=== PATIENT | male | born 1955 | race Caucasian/White ===

== ENCOUNTER 2017-10-19 12:29 | Outpatient (CLI) | payer MEDICAID ==
[~2017-10-19] VITALS: Ht 160 cm; Wt 77.1 kg
[2017-10-19 12:40] VITALS: BP 120/89
[2017-10-19] MEDS ORDERED: HYDR-3820 PO (12:59)
[2017-10-19] MEDS ORDERED: ALPR1TAB7 PO (12:59)
[2017-10-19] MEDS ORDERED: OMG1KC PO (12:59)
[2017-10-19] MEDS ORDERED: GABA-486 PO (12:59)
[2017-10-19] MEDS ORDERED: DULO20CA PO (12:59)
[2017-10-19] MEDS ORDERED: CINN500C2 PO (12:59)
[2017-10-19 13:20] LABS: BASOPHILS % (AUTO) 1 % (0-10); EOSINOPHILS # (AUTO) 0.2 10^3/uL (0.0-0.3); EOSINOPHILS % (AUTO) 2 % (0-10); HEMATOCRIT 40 % (40-54); LYMPHOCYTES % (AUTO) 26 % (12-44); MEAN CORPUSCULAR HEMOGLOBIN 32 PG (25-34); MEAN CORPUSCULAR HGB CONC 35 G/DL (32-36); MEAN CORPUSCULAR VOLUME 90 FL (80-99); MONOCYTES # (AUTO) 0.6 X 10^3 (0.0-1.0); MONOCYTES % (AUTO) 8 % (0-12); NEUTROPHILS % (AUTO) 64 % (42-75); PLATELET COUNT 294 10^3/uL (130-400); RED BLOOD COUNT 4.44 10^6/uL (4.35-5.85); RED CELL DISTRIBUTION WIDTH 12.5 % (10.0-14.5); WHITE BLOOD COUNT 7.8 10^3/uL (4.3-11.0)
[2017-10-19] MEDS ORDERED: LISI10TA2 PO (14:37)
[2017-10-19] MEDS ORDERED: DULO60CA58 PO (14:37)
[2017-10-19] MEDS ORDERED: GABA-488 PO (14:37)
[2017-10-19] MEDS ORDERED: DEXL60CA PO (14:37)
== END 2017-10-19 13:10 | disposition home or self-care (01) ==
LOC: PREOP 12:29
PROVIDERS: ATTEND Orthopaedic Surgery
DX: M48.02 Spinal stenosis, cervical region (principal); Z11.2 Encounter for screening for other bacterial diseases; Z01.812 Encounter for preprocedural laboratory examination
CPT/HCPCS: 36415; 85025; 87081

== ENCOUNTER 2017-10-29 06:11 | Inpatient (IN) | payer MEDICAID ==
[~2017-10-29] VITALS: Ht 160 cm; Wt 77.1 kg
[~2017-10-29 06:11] MED LIST: ALPR1TAB7 PO; CINN500C2 PO; DEXL60CA PO; DULO20CA PO; DULO60CA58 PO; GABA-486 PO; GABA-488 PO; HYDR-3820 PO; LISI10TA2 PO; OMG1KC PO
[2017-10-29 06:25] VITALS: BP 121/95
[2017-10-29] MEDS: LACTATED RINGERS 1,000 ML IV PRN ×2 (06:40→08:13)
[2017-10-29] MEDS ORDERED: ceFAZolin 2 GM IV Premixed 50 ML IV ONE (06:45)
[2017-10-29] MEDS ORDERED: FAMOTIDINE 20MG/2ML IV (PEPCID) IV ONE (07:00)
[2017-10-29] MEDS ORDERED: ROCURONIUM 10 MG/ML 5 ML SYRINGE IV ONE (07:02)
[2017-10-29] MEDS ORDERED: SUCCINYLCHOLINE INJ 100 MG/5 ML SYR ONE (07:02)
[2017-10-29] MEDS ORDERED: LIDOCAINE PF 2% 5 ML (XYLOCAINE) VIAL ONE (07:02)
[2017-10-29] MEDS ORDERED: proPOfol 200 MG/20 ML (DIPRIVAN) VIAL IV ONE ×2 (07:02→07:42)
[2017-10-29] MEDS ORDERED: ONDANSETRON 4 MG/2 ML (SDV) Z0FRAN ONE (07:02)
[2017-10-29] MEDS ORDERED: fentaNYL INJECTION 100 MCG/2 ML AMP ONE (07:02)
[2017-10-29] MEDS ORDERED: DEXAMETHASONE 10 MG/ML (DECADRON) 1 ML VIAL ONE (07:03)
[2017-10-29] MEDS ORDERED: DEXMEDETOMIDINE 200 MCG/2 ML (PRECEDEX) VIAL IV ONE (07:03)
[2017-10-29] MEDS ORDERED: MIDAZOLAM 2 MG/2 ML (VERSED) VIAL ONE (07:03)
[2017-10-29] MEDS ORDERED: BACITRACIN 100,000 UNIT/NS 1000 ML POUR BOTTLE IR ONE ×2 (07:30)
[2017-10-29] MEDS ORDERED: SEVOFLURANE (ULTANE) 15 ML INHAL SOLN ONE ×2 (08:36→08:43)
[2017-10-29] MEDS ORDERED: GLYCOPYRROLATE 0.2 MG/ML (ROBINUL) 2 ML VIAL ONE (08:43)
[2017-10-29] MEDS ORDERED: NEOSTIGMINE 1 MG/ML 5 ML SYRINGE ONE (08:43)
[2017-10-29] MEDS ORDERED: ATROPINE 0.4 MG/ML 20 ML VIAL ONE (08:58)
[2017-10-29] MEDS ORDERED: ONDANSETRON 4 MG/2 ML (SDV) Z0FRAN IVP PRN (09:15)
[2017-10-29] MEDS ORDERED: ALPRAZolam 1 MG (XANAX) TAB PO PRN (09:15)
[2017-10-29] MEDS ORDERED: DOCUSATE SODIUM 100 MG (COLACE) CAP PO PRN (09:15)
[2017-10-29] MEDS ORDERED: BISACODYL 10 MG SUPP (DULCOLAX) PR PRN (09:15)
[2017-10-29] MEDS ORDERED: ONDANSETRON 4 MG/2 ML (SDV) Z0FRAN IV PRN (09:15)
[2017-10-29] MEDS ORDERED: MEPERIDINE (DEMEROL) INJ 50 MG/ML IVP PRN (09:15)
[2017-10-29] MEDS ORDERED: ACETAMINOPHEN 325 MG TABLET PO PRN (09:15)
[2017-10-29] MEDS ORDERED: morphine INJ 10 MG/ML 1ML (SYR OR VIAL) IM PRN (09:15)
[2017-10-29] MEDS ORDERED: HYDROmorphone 1 MG/ML (DILAUDID) 1 ML SYRINGE IV PRN (09:15)
[2017-10-29] MEDS ORDERED: morphine INJ 10 MG/ML 1ML (SYR OR VIAL) IVP PRN (09:15)
--- NOTE | 2017-10-29 09:17 | Diagnostic Imaging Report ---
INDICATION: Cervical spine fusion. FINDINGS: Fluoroscopy was provided in the OR during cervical spine fusion. 8 seconds of fluoroscopy was utilized. Images demonstrate an anterior plate and screws transfixing the C4 through C6 levels. IMPRESSION: Fluoroscopy for ACDF. Dictated by: Dictated on workstation # [id number]
[2017-10-29 10:15] VITALS: BP 114/67
[2017-10-29 12:00] VITALS: BP 126/72
[2017-10-29] MEDS: oxyCODONE/APAP 5/325MG (PERCOCET 5) TABLET PO PRN (12:55)
[2017-10-29] MEDS: GABAPENTIN 300 MG (NEURONTIN) CAP PO SCH ×2 (12:55→20:19)
--- NOTE | 2017-10-29 13:18 | OPERATIVE REPORT ---
DATE OF SERVICE: 10/29/2017 SURGEON: Donna Carlson DO WATERWORKS CHIEF ENGINEER: STEPHEN Lopez. This is a medically necessary procedure. Assistance is necessary for retraction of vital neurovascular structures. Without an dental assistant medical assistant, the procedure would not be possible. PREOPERATIVE DIAGNOSES: 1. Cervical radiculopathy. 2. Cervical stenosis (foraminal, bony, central). POSTOPERATIVE DIAGNOSES: 1. Cervical radiculopathy. 2. Cervical stenosis (foraminal, bony, central). PROCEDURE PERFORMED: 1. C4-5, C5-6 anterior cervical diskectomy and fusion. 2. Application of titanium interbody spacers C4-5, C5-6. 3. Application of anterior instrumentation C4-5, C5-6. 4. Use of human allograft for spine. 5. Use of local bone autograft. COMPLICATIONS: None. SPECIMENS SENT: None. DRAIN PLACED: With Hemovac. ESTIMATED BLOOD LOSS: Minimal. ANESTHESIA: General endotracheal tube anesthesia. HISTORY OF PRESENT ILLNESS: The patient is a very pleasant 62-year-old gentleman who presented to me with severe radiating right upper extremity pain. MRI demonstrated spinal stenosis. He failed conservative measures and did wish to proceed with operative intervention. He understood the risks and benefits. DESCRIPTION OF PROCEDURE: The patient was identified by name on wrist band in the preoperative holding area. His operative site was signed. Consent was signed. SCDs were placed. Neuromonitor was hooked up and antibiotics were started. He was taken to the operating room theater and placed under general endotracheal tube anesthesia and transferred to the operating table in the supine position. He was prepped and draped in usual sterile fashion. Formal timeout was conducted. Lateral x-ray was then used to srini out the level of my incision. I made an oblique incision over the medial aspect of the left sternocleidomastoid. I proceeded with standard anterior cervical approach, identified and verified my level under lateral x-ray. I then placed [place] pin distraction across the C4-5 disk space and I performed a complete diskectomy. I took down the posterior longitudinal ligament and I did bilateral foraminotomies. I then sized and chose the appropriate titanium interbody cage packed with human allograft and local bone autograft and anesthesia in the midline position. I then repeated this process at C5-6. I then chose the appropriate size plate and placed it directly in the midline. I placed screws into the body of C4, C5 and C6. Final x-rays demonstrated good positioning of all the hardware. I maintained hemostasis, irrigated the wound, placed the drain, closed the wound in the usual layered fashion utilizing 3-0 Vicryl followed by running 3-0 subcuticular stitch. I applied dressings, took the patient in the supine position to the PACU where he awoke without incident. He tolerated the procedure well. The plan at this time is to admit the patient for IV antibiotics, IV pain control and postoperative monitoring. He will be out of bed with a brace on. We will discontinue his drain per my protocol. Please note instrumentation utilized was NuV[employer] for everything. Neuro monitoring was stable throughout. Job ID: [id number] DocumentID: [id number] Dictated Date: 10/29/2017 08:55:23 Systems Architect Date: 10/29/2017 13:17:28 Dictated By: DONNA CARLSON DO
[2017-10-29] MEDS: ceFAZolin INJECTION 1,000 MG in NS (IVPB) 50 ML IV SCH ×2 (13:25→21:02)
[2017-10-29] MEDS: CYCLOBENZAPRINE 10 MG (FLEXERIL) TAB PO PRN (13:30)
[2017-10-29] MEDS: HYDROcodone/APAP 5 MG/325 MG (LORTAB) TAB PO PRN ×2 (15:01→20:20)
[2017-10-29] MEDS ORDERED: CHLORASEPTIC SPRAY 177 ML LIQUID MC PRN (15:15)
[2017-10-29 15:35] VITALS: BP 120/76
[2017-10-29 19:50] VITALS: BP 126/64
[2017-10-29] MEDS: FAMOTIDINE 20 MG (PEPCID) TABLET PO SCH (20:19)
[2017-10-30 00:38] VITALS: BP 127/75
[2017-10-30 04:22] VITALS: BP 133/77
[2017-10-30] MEDS: ceFAZolin INJECTION 1,000 MG in NS (IVPB) 50 ML IV SCH (05:02)
[2017-10-30] MEDS: HYDROcodone/APAP 5 MG/325 MG (LORTAB) TAB PO PRN (05:03)
[2017-10-30] MEDS ORDERED: PANTOPRAZOLE 40 MG (PROTONIX) TAB PO SCH (07:00)
[2017-10-30] MEDS ORDERED: MULTIVIT W/MINERALS TAB (THERAGRAN M) PO SCH (07:00)
--- NOTE | 2017-10-30 07:00 | Anesthesia-General Post-Op ---
General Patient Condition Mental Status/LOC: Same as Preop Cardiovascular: Satisfactory Nausea/Vomiting: Absent Respiratory: Satisfactory Pain: Controlled Complications: Absent Post Op Complications Complications None Follow Up Care/Instructions Patient Instructions None needed. Anesthesia/Patient Condition Patient Condition Patient is doing well, no complaints, stable vital signs, no apparent adverse anesthesia problems. No complications reported per nursing. CANDIS LICONA CRNA Oct 30, 2017 07:00
[2017-10-30] MEDS ORDERED: OXYC-471 PO (07:05)
[2017-10-30] MEDS ORDERED: CYCL10TA9 PO (07:05)
[2017-10-30] MEDS: CYCLOBENZAPRINE 10 MG (FLEXERIL) TAB PO PRN (07:57)
[2017-10-30] MEDS: oxyCODONE/APAP 5/325MG (PERCOCET 5) TABLET PO PRN (07:57)
[2017-10-30 08:00] VITALS: BP 176/91
[2017-10-30] MEDS: GABAPENTIN 300 MG (NEURONTIN) CAP PO SCH ×2 (08:00→13:07)
[2017-10-30] MEDS: FAMOTIDINE 20 MG (PEPCID) TABLET PO SCH (08:07)
--- NOTE | 2017-10-30 08:16 | Diagnostic Imaging Report ---
INDICATION: Postop C-spine FINDINGS: Anterior Interbody cervical fusion C4, C5, and C6 is performed. Hardware in good position. Bony alignment anatomic. Surgical drain overlies the site. No unexpected finding. IMPRESSION: Good appearance of the postop multilevel ACDF Dictated by: Dictated on workstation # [id number]
[2017-10-30] MEDS ORDERED: MILK OF MAGNESIA 400 MG/5 ML 30 ML UDC PO SCH (09:00)
[2017-10-30] MEDS ORDERED: DULoxetine 30 MG (CYMBALTA) CAP PO SCH (09:00)
[2017-10-30] MEDS ORDERED: lisINopril 10 MG (PRINIVIL) TABLET PO SCH (09:00)
--- NOTE | 2017-10-30 10:35 | Physical Therapy Progress Note ---
Therapy Progress Note Patient is currently up independently in room and hallway without difficulty. Talked with patient and family on any concerns and they had none. No skilled PT required at this time. Thank you for this referral. 1 visit JEFRY SIMS PT Oct 30, 2017 10:35
--- NOTE | 2017-10-30 12:50 | Discharge Inst-Simple/Standard ---
Discharge Inst-Standard Patient Instructions/Follow Up Plan of Care/Instructions/FU: continue c-collar dont bend lift twist push or pull keep incision clean and dry follow up 2 weeks for post op visit Activity as Tolerated: No Discharge Diet: Regular Diet Return to The Hospital For: fever chills night sweat shortness of breath chest pain VENKAT ZAYAS Oct 30, 2017 12:50
--- NOTE | 2017-10-30 13:26 | Occ Therapy Progress Note ---
Therapy Progress Note OT order received, chart reviewed. Went in to evaluate pt. Pt. is sitting up in chair, with clothing on. Pt. has already dressed self, and demonstrates ability to bring feet up to show this therapist that he can don socks. Pt. states that he has been to the bathroom, and is already seeing a significant improvement in bilateral hands as far as strength and sensation. OT asked him if he had any concerns and pt. states that he does not. Pt. to leave today per him and family member. Pt. is educated again on spinal precautions but states that he knows them well. 1, visit 0930 Discharge pt. KATHY SOTELO OT Oct 30, 2017 13:26
[2017-10-30 13:32] VITALS: BP 176/91
== END 2017-10-30 13:25 | disposition home or self-care (01) | DRG 473 ==
LOC: 4TH 06:11 → SURG 06:12 → 4TH 10:25
PROVIDERS: ADMIT Orthopaedic Surgery; ATTEND Orthopaedic Surgery
PROC: 0RG20A0 Fusion of 2 or more Cervical Vertebral Joints with Interbody Fusion Device, Anterior Approach, Anterior Column, Open Approach (ICD-10-PCS; principal; 2017-10-29 07:27)
DX: M48.02 Spinal stenosis, cervical region (principal); M54.12 Radiculopathy, cervical region; I10 Essential (primary) hypertension; F41.9 Anxiety disorder, unspecified; F32.9 Major depressive disorder, single episode, unspecified
CPT/HCPCS: 72040; 94664

== ENCOUNTER 2018-03-14 15:03 | Emergency (ER) | payer OTHER, MEDICAID ==
[~2018-03-14] VITALS: Ht 160 cm; Wt 78.9 kg
[~2018-03-14 15:03] MED LIST changes: +CYCL10TA9 PO; +OXYC-471 PO
[2018-03-14] MEDS ORDERED: morphine INJ 10 MG/ML 1ML (SYR OR VIAL) IVP ONE (15:15)
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
[2018-03-14] MEDS ORDERED: LOSA50TA7 (15:48)
[2018-03-14 15:50] LABS: BASOPHILS % (AUTO) 0 % (0-10); EOSINOPHILS # (AUTO) 0.1 10^3/uL (0.0-0.3); EOSINOPHILS % (AUTO) 1 % (0-10); HEMATOCRIT 39 % (40-54); HEMOGLOBIN 13.5 G/DL (13.3-17.7); LYMPHOCYTES # (AUTO) 1.7 X 10^3 (1.0-4.0); LYMPHOCYTES % (AUTO) 22 % (12-44); MEAN CORPUSCULAR HEMOGLOBIN 31 PG (25-34); MEAN CORPUSCULAR HGB CONC 35 G/DL (32-36); MEAN CORPUSCULAR VOLUME 89 FL (80-99); MEAN PLATELET VOLUME 9.2 FL (7.4-10.4); MONOCYTES # (AUTO) 0.9 X 10^3 (0.0-1.0); MONOCYTES % (AUTO) 12 % (0-12); NEUTROPHILS % (AUTO) 65 % (42-75); PLATELET COUNT 277 10^3/uL (130-400); RED BLOOD COUNT 4.38 10^6/uL (4.35-5.85); WHITE BLOOD COUNT 7.7 10^3/uL (4.3-11.0)
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
[2018-03-14 16:05] LABS: ALANINE AMINOTRANSFERASE 48 U/L (0-55); ALBUMIN 4.1 GM/DL (3.2-4.5); ALKALINE PHOSPHATASE 85 U/L (40-136); BILIRUBIN,TOTAL 0.4 MG/DL (0.1-1.0); BUN/CREATININE RATIO 14; CARBON DIOXIDE 23 MMOL/L (21-32); CHLORIDE 108 MMOL/L (98-107); GFR ESTIMATED > 60; GLUCOSE 93 MG/DL (70-105); POTASSIUM 4.4 MMOL/L (3.6-5.0); SODIUM 141 MMOL/L (135-145); TOTAL PROTEIN 6.7 GM/DL (6.4-8.2)
[2018-03-14] MEDS ORDERED: KETOROLAC 30 MG/ML VIAL IVP ONE (16:15)
[2018-03-14] MEDS ORDERED: ORPHENADRINE 60 MG/2 ML (NORFLEX) AMP IV ONE (16:15)
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
[2018-03-14 17:43] VITALS: BP 125/82
== END 2018-03-14 17:43 | disposition home or self-care (01) ==
LOC: EDUNIT# 15:03 → ER 15:04
DX: M54.2 Cervicalgia (principal); R07.9 Chest pain, unspecified; R10.9 Unspecified abdominal pain; R51 Headache; F41.9 Anxiety disorder, unspecified; R40.2142 Coma scale, eyes open, spontaneous, at arrival to emergency department; R40.2252 Coma scale, best verbal response, oriented, at arrival to emergency department; R40.2362 Coma scale, best motor response, obeys commands, at arrival to emergency department; Z82.49 Family history of ischemic heart disease and other diseases of the circulatory system; Z88.8 Allergy status to other drugs, medicaments and biological substances; Z87.442 Personal history of urinary calculi; V52.5XXA Driver of pick-up truck or van injured in collision with two- or three-wheeled motor vehicle in traffic accident, initial encounter
CPT/HCPCS: 36415; 70450; 71260; 72125; 72131; 73030; 74177; 80053; 85025; 93005

== ENCOUNTER → 2018-11-27 | Outpatient (CLI) | payer MEDICAID, OTHER ==
[~2018-11-27] MED LIST changes: -DULO60CA58 PO; +DULO60CA59 PO; +GADOBUTROL 10 MMOL/10 ML (GADAVIST) VIAL IV ONE; +LOSA50TA63
--- NOTE | 2018-11-27 17:26 | Diagnostic Imaging Report ---
PROCEDURE: MR imaging of the cervical spine with and without contrast. TECHNIQUE: Multiplanar and multisequence MRI of the cervical spine was performed with and without contrast. INDICATION: Neck pain. Left-sided arm pain. Previous surgery. COMPARISON: CT dated 06/04/2018. FINDINGS: Patient is status post previous anterior fusion of C4 through C6. Evaluation of the surgical hardware is suboptimal secondary to MR modality and metallic susceptibility artifact. Static alignment of C4 through C6, however, is maintained. Note is made, however, of slight grade 1 retrolisthesis at C3-C4. There is no evidence of jumped facets. The C4 through C6 vertebral bodies are also partially obscured secondary to the underlying surgical hardware. Marrow signal of the cervical spine, however, is unremarkable. There is no acute fracture. Postcontrast images show no abnormal areas of osseous enhancement. There is mild multilevel intervertebral disc height loss at the C3-C4 and C6-C7 levels as well as posterior disc bulges. This does result in underlying spinal canal narrowing. Cervical cord, however, is normal in size and contour. There is no evidence of cord edema. Postcontrast images show no abnormal areas of cord enhancement. Included portions of the posterior fossa are unremarkable as well. Pre- and para-vertebral soft tissue structures are within normal limits. Axial images demonstrate the following: C2-C3: There is mild bilateral uncovertebral hypertrophy. There is, however, no significant disc bulge, focal protrusion, nor spinal canal or neural foraminal stenosis. C3-C4: There is bilateral uncovertebral hypertrophy with broad-based posterior disc bulge. As a result, there is fjbd-rd-axcvlgrp narrowing of the spinal canal and mild narrowing of the bilateral neural foramina. C4-C5: There is mild bilateral uncovertebral hypertrophy. There is no large disc bulge. Intervertebral disc spacers are noted. There may be mild narrowing of the bilateral neural foramina. Spinal canal is minimally narrowed as well. C5-C6: There is bilateral uncovertebral hypertrophy. There is no large disc bulge. Note is made of intervertebral disc spacer in appropriate position. There is perhaps minimal narrowing of the spinal canal and left neural foramen. Moderate narrowing of the right neural foramen is also noted. C6-C7: There is bilateral uncovertebral hypertrophy, right greater than left. There is also mild broad-based posterior disc bulge. As a result, there is moderate asymmetric narrowing of the right neural foramen. There is also mild narrowing of the left neural foramen and spinal canal. C7-T1: There is no large disc bulge or focal protrusion. There is no significant spinal canal or neural foraminal stenosis. IMPRESSION: 1. Postsurgical changes of previous anterior fusion of C4 through C6. Again, evaluation of the surgical hardware is suboptimal given MR modality and metallic susceptibility artifact, but static alignment at these levels is maintained. 2. Mild retrolisthesis at C3-C4 with degenerative changes, greatest at C3-C4 and C6-C7. 3. No acute fracture or dislocation. No abnormal enhancement. Dictated by: Dictated on workstation # [id number]
== END ==
LOC: RAD 16:09
PROVIDERS: ATTEND Family Medicine
DX: M43.12 Spondylolisthesis, cervical region (principal); M47.812 Spondylosis without myelopathy or radiculopathy, cervical region; Z98.890 Other specified postprocedural states
CPT/HCPCS: 72156

== ENCOUNTER 2020-05-21 16:20 | Emergency (ER) | payer MEDICAID ==
[~2020-05-21] VITALS: Ht 162.6 cm; Wt 81.6 kg
[~2020-05-21 16:20] MED LIST changes: +ACHYD1T PO; -GADOBUTROL 10 MMOL/10 ML (GADAVIST) VIAL IV ONE; -HYDR-3820 PO
--- NOTE | 2020-05-21 16:31 | ED General ---
General Chief Complaint: Exposure Stated Complaint: CONGESTION,EXPOSED TO BLACK MOLD History of Present Illness Date Seen by Provider: May 21, 2020 Time Seen by Provider: 16:30 Initial Comments 64-year-old male presents with congestion, goopy eyes when awakes in the morning, itchy throat, frequent throat clearing. Patient is concerned is possibly from mold where they were exposed to the house but they report they have clean the house from it. Symptoms started 10 to 14 days ago. Patient had a Covid test 7 days ago that was negative. Patient denies any cough, shortness of breath, fevers, chills. Occasional upset stomach. Allergies and Home Medications Allergies Coded Allergies: Wpckhsy-Ecl-Atg Reductase Inhibitor (Verified Allergy, Unknown, 10/19/17) albuterol (Verified Allergy, Unknown, 10/19/17) fentanyl (Verified Allergy, Unknown, 03/14/18) Home Medications Alprazolam 1 Mg Tablet, 1 MG PO TID PRN for ANXIETY, (Reported) Cinnamon Bark 500 Mg Capsule, 500 MG PO BID, (Reported) Cyclobenzaprine HCl 10 Mg Tablet, 10 MG PO TID PRN for SPASMS Prescribed by: VENKAT ZAYAS on 10/30/17704 Dexlansoprazole 60 Mg Cap.bp, 60 MG PO DAILY, (Reported) Duloxetine HCl 60 Mg Capsule.dr, 60 MG PO DAILY, (Reported) Gabapentin 300 Mg Capsule, 300 MG PO TID, (Reported) Lisinopril 10 Mg Tablet, 10 MG PO DAILY, (Reported) [place] 3 Polyunsat Fatty Acids 1,000 Mg Cap, 1,000 MG PO DAILY, (Reported) Oxycodone HCl/Acetaminophen 1 Each Tablet, 1-2 TAB PO Q4H PRN for PAIN-SEVERE 1ST LINE Prescribed by: VENKAT ZAYAS on 10/30/17 07 Patient Home Medication List Home Medication List Reviewed: Yes Review of Systems Review of Systems Constitutional: No chills, No fever, No malaise EENTM: see HPI Respiratory: No cough, No short of breath Cardiovascular: No chest pain, No palpitations Gastrointestinal: see HPI Musculoskeletal: no symptoms reported Skin: No rash Psychiatric/Neurological: No Symptoms Reported Hematologic/Lymphatic: No Symptoms Reported Past Mzwygmh-Nooivq-Loawkj Hx Past Med/Social Hx: Reviewed Nursing Past Med/Soc Hx Patient Social History Recent Hopitalizations: No Immunizations Up To Date Tetanus Booster (TDap): Unknown PED Vaccines UTD: Yes Seasonal Allergies Seasonal Allergies: Yes Past Medical History Surgeries: Yes (several ESWL's) Respiratory: No Cardiac: No Neurological: Yes Genitourinary: Yes Kidney Stones Gastrointestinal: No Musculoskeletal: Yes (stenosis) Arthritis, Chronic Back Pain Endocrine: No HEENT: No Cancer: No Psychosocial: Yes Anxiety Integumentary: Yes (a few bug bites on arms) Blood Disorders: No Adverse Reaction/Blood Tranf: No Family Medical History Arthritis 19 FATHER Cardiovascular disease 19 MOTHER Diabetes mellitus 19 MOTHER Hypertension 19 MOTHER Myocardial infarction 19 MOTHER Respiratory disorder 19 FATHER (lung ca) Physical Exam Vital Signs Capillary Refill : Height, Weight, BMI Height: 5'3.00" Weight: 174lbs. 0.0oz. 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 I will start patient on Flonase and Zyrtec. If patient develops shortness of breath, fever, chills or other symptoms consistent with infection they should present to primary care provider. If symptoms or not improving within 10 days they should follow-up with her primary care provider for recheck. Departure Impression Primary Impression: Allergic rhinitis caused by mold Disposition: 01 HOME, SELF-CARE Condition: Stable Departure-Patient Inst. Referrals: SELF,ANUP MORELAND (PCP) Primary Care Physician [facility]JOHN (Family) Primary Care Physician Patient Instructions: Allergy to Mold, Controlling Dust and Allergens in Your Home Add. Discharge Instructions: Zyrtec daily as directed on package or similar allergy medicine such as Nora, Claritin Flonase as directed on package daily All discharge instructions reviewed with patient and/or family. Voiced understanding. STEPHEN RHODES DO May 21, 2020 16:30
[2020-05-21 16:45] VITALS: BP 126/85
== END 2020-05-21 17:10 | disposition home or self-care (01) ==
LOC: EDUNIT# 16:20 → ER FS 16:22
DX: J30.89 Other allergic rhinitis (principal); F41.9 Anxiety disorder, unspecified; G89.29 Other chronic pain; M54.9 Dorsalgia, unspecified; Z88.8 Allergy status to other drugs, medicaments and biological substances; Z82.49 Family history of ischemic heart disease and other diseases of the circulatory system; Z82.61 Family history of arthritis; Z83.3 Family history of diabetes mellitus; Z79.891 Long term (current) use of opiate analgesic
CPT/HCPCS: 99282

== ENCOUNTER 2021-02-08 10:27 | Emergency (ER) | payer MEDICAID ==
[~2021-02-08] VITALS: Ht 160 cm; Wt 77.0 kg
[~2021-02-08 10:27] MED LIST changes: -LISI10TA2 PO; +LISI10TA25 PO; -OXYC-471 PO; +OXYC1TAB11 PO
--- OUTSIDE RECORDS SUMMARY | 2021-02-08 10:32 | XMS REPORT | Clinical Summary ---
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 If you d o not see the information that you expected, contact Release of Information in [facility] Information Management department at [phone] for further assistan ce in locating additional records.[facility] Allergies Not on File Medications Not on file Active Problems Not on file Social History Date Tobacco Use Types Packs/Day Years Used Never Assessed Sex Assigned at Date Recorded Not on file Last Filed Vital Signs Not on file Plan of Treatment Health Maintenance Due Date Last Done Comments HIV SCREENING 08/22/1971 DTAP/TDAP VACCINES (1 - 1974 Tdap) HEPATITIS C SCREENING 1974 PHYSICAL (COMPREHENSIVE) 1974 EXAM COLORECTAL CANCER 2006 SCREENING SHINGLES RECOMBINANT 2006 VACCINE (1 of 2) INFLUENZA VACCINE 11/14/2020 Results Not on filefrom Last 3 Months 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
[2021-02-08] MEDS ORDERED: LORazepam 0.5 MG (ATIVAN) TABLET PO STA (10:41)
[2021-02-08] MEDS ORDERED: cloNIDine 0.2 MG (CATAPRES) TAB PO ONE (10:45)
[2021-02-08 10:47] LABS: HEMATOCRIT 43 % (40-54); HEMOGLOBIN 14.8 g/dL (13.3-17.7); MEAN CORPUSCULAR HEMOGLOBIN 32 pg (25-34); MEAN CORPUSCULAR HGB CONC 35 g/dL (32-36); MEAN CORPUSCULAR VOLUME 91 fL (80-99); MEAN PLATELET VOLUME 8.9 fL (9.0-12.2); PLATELET COUNT 262 10^3/uL (130-400); WHITE BLOOD COUNT 6.2 10^3/uL (4.3-11.0)
[2021-02-08 10:48] LABS: BASOPHILS # (AUTO) 0.1 10^3/uL (0.0-0.1); BASOPHILS % (AUTO) 1 % (0-10); EOSINOPHILS # (AUTO) 0.1 10^3/uL (0.0-0.3); EOSINOPHILS % (AUTO) 2 % (0-10); LYMPHOCYTES # (AUTO) 1.9 X 10^3 (1.0-4.0); LYMPHOCYTES % (AUTO) 30 % (12-44); MONOCYTES # (AUTO) 0.5 X 10^3 (0.0-1.0); MONOCYTES % (AUTO) 8 % (0-12); NEUTROPHILS # (AUTO) 3.7 X 10^3 (1.8-7.8); NEUTROPHILS % (AUTO) 59 % (42-75)
--- NOTE | 2021-02-08 10:58 | Diagnostic Imaging Report ---
PATIENT HISTORY: Chest pain. TECHNIQUE: Single frontal view of the chest. COMPARISON: 06/02/2008 FINDINGS: The lung volumes are normal. No focal consolidation is seen. No large pleural effusion or pneumothorax is seen. The cardiomediastinal silhouette is normal in size and contour. No acute osseous abnormality is seen. IMPRESSION: No acute pulmonary abnormality seen. Dictated by: Dictated on workstation # [id number]
[2021-02-08 11:11] LABS: BUN/CREATININE RATIO 14; CARBON DIOXIDE 28 MMOL/L (21-32); CHLORIDE 109 MMOL/L (98-107); CREATININE SERUM 1.26 MG/DL (0.60-1.30); GFR ESTIMATED 58; POTASSIUM 4.9 MMOL/L (3.6-5.0); SODIUM 147 MMOL/L (135-145)
[2021-02-08 11:12] LABS: ALANINE AMINOTRANSFERASE 15 U/L (0-55); ALBUMIN 4.8 GM/DL (3.2-4.5); ALKALINE PHOSPHATASE 86 U/L (40-136); BILIRUBIN,TOTAL 0.4 MG/DL (0.1-1.0); CALCIUM 9.5 MG/DL (8.5-10.1); GLUCOSE 104 MG/DL (70-105); TOTAL PROTEIN 7.7 GM/DL (6.4-8.2)
[2021-02-08 11:46] VITALS: BP 150/74
--- NOTE | 2021-02-08 11:55 | ED Chest Pain ---
General Chief Complaint: Cardiac/General Problems Stated Complaint: LT SIDED FACIAL DROOP; ELEV BP Nursing Triage Note: PT REPORTS HIS BP WAS HIGH YESTERDAY (170'S SYSTOLIC) AND WENT TO DR FUNES'S OFFICE AND THEY DOUBLED HIS PRESCRIPTION DOSE. HE REPORTS THIS AM HIS BLOOD PRESSURE WAS STILL HIGH. Source: patient Exam Limitations: clinical condition History of Present Illness Date Seen by Provider: Feb 08, 2021 Time Seen by Provider: 10:48 Initial Comments Patient is a 65-year-old male with history of chronic neck pain and hypertension who presents with elevated blood pressure 170s over 120s. Patient states he was calibrating his blood pressure at home and noted that was elevated 170s over 20s prompting him to come to the emergency department. The patient was evaluated by his PCP yesterday and had his blood pressure medications increased. Patient had already taken his blood pressure medication prior to checking his blood pressure this morning. Patient denies chest pain palpitations, shortness of breath, headache and dizziness. He does report increased anxiety and chronic neck pain owing to reconstructive surgery 4 years ago. Denies extremity weakness loss of sensation, decreased urinary output. No other acute symptoms or complaints. No history of CAD, aortic aneurysm or dissection. Timing/Duration: changing over time Severity/Quality: other Location: other Radiation: other Activities at Onset: other Prior CP/Workup: other Modifying Factors: improves with other Allergies and Home Medications Allergies Coded Allergies: Awqgdnu-Lmp-Xay Reductase Inhibitor (Verified Allergy, Unknown, 10/19/17) albuterol (Verified Allergy, Unknown, 10/19/17) fentanyl (Verified Allergy, Unknown, 03/14/18) Patient Home Medication List Home Medication List Reviewed: Yes Alprazolam (Alprazolam) 1 Mg Tablet, 1 MG PO TID PRN for ANXIETY, (Reported) Entered as Reported by: DENICE MOON on 10/19/17 1259 Cinnamon Bark (Cinnamon) 500 Mg Capsule, 500 MG PO BID, (Reported) Entered as Reported by: DENICE MOON on 10/19/17 1259 Cyclobenzaprine HCl (Cyclobenzaprine HCl) 10 Mg Tablet, 10 MG PO TID PRN for SPASMS Prescribed by: VENKAT ZAYAS on 10/30/17 0705 Dexlansoprazole (Dexilant) 60 Mg , 60 MG PO DAILY, (Reported) Entered as Reported by: DENICE MOON on 10/19/17 1437 Duloxetine HCl (Duloxetine HCl) 60 Mg Capsule.dr, 60 MG PO DAILY, (Reported) Entered as Reported by: DENICE MOON on 10/19/17 1437 Gabapentin (Gabapentin) 300 Mg Capsule, 300 MG PO TID, (Reported) Entered as Reported by: DENICE MOON on 10/19/17 1437 Lisinopril (Lisinopril) 10 Mg Tablet, 10 MG PO DAILY, (Reported) Entered as Reported by: DENICE MOON on 10/19/17 1437 Losartan Potassium (Losartan Potassium) 50 Mg Tablet, (Reported) Entered as Reported by: EMILEE PRESTON on 03/14/18 1548 [place] 3 Polyunsat Fatty Acids (Fish Oil 1,000 mg Capsule) 1,000 Mg Cap, 1,000 MG PO DAILY, (Reported) Entered as Reported by: DENICE MOON on 10/19/17 1259 Oxycodone HCl/Acetaminophen (Oxycodone-Acetaminophen 5-325) 1 Each Tablet, 1-2 T AB PO Q4H PRN for PAIN-SEVERE 1ST LINE Prescribed by: VENKAT ZAYAS on 10/30/17 0705 Review of Systems Review of Systems Constitutional: see HPI EENTM: See HPI Respiratory: See HPI Cardiovascular: See HPI Gastrointestinal: See HPI Genitourinary: See HPI Musculoskeletal: see HPI Skin: see HPI Psychiatric/Neurological: See HPI Endocrine: See HPI Hematologic/Lymphatic: See HPI All Other Systems Reviewed Negative Unless Noted: Yes Past Rthsmbh-Almeza-Iuqsxm Hx Patient Social History Tobacco Use?: No Use of E-Cig and/or Vaping dev: No Substance use?: No Alcohol Use?: No Pt feels they are or have been: Yes Immunizations Up To Date Tetanus Booster (TDap): Unknown PED Vaccines UTD: Yes First/Initial COVID19 Vaccinat: 2020 Second COVID19 Vaccination Michael: 2020 COVID19 Vaccine Log Loader: DONT KNOW Seasonal Allergies Seasonal Allergies: Yes Past Medical History Surgery/Hospitalization HX: THROAT RECONSTRUCTION 4 YEARS AGO HTN HYPERLIPIDEMIA Surgeries: Yes (several ESWL's) Respiratory: No Cardiac: No Neurological: Yes Genitourinary: Yes Kidney Stones Gastrointestinal: No Musculoskeletal: Yes (stenosis) Arthritis, Chronic Back Pain Endocrine: No HEENT: No Cancer: No Psychosocial: Yes Anxiety Integumentary: Yes (a few bug bites on arms) Blood Disorders: No Adverse Reaction/Blood Tranf: No Family Medical History Arthritis 19 FATHER Cardiovascular disease 19 MOTHER Diabetes mellitus 19 MOTHER Hypertension 19 MOTHER Myocardial infarction 19 MOTHER Respiratory disorder 19 FATHER (lung ca) Physical Exam Vital Signs Vital Signs - First Documented 02/08/21 10:27 Temp 36.3 Pulse 70 Resp 20 B/P (MAP) 151/106 (121) Pulse Ox 98 O2 Delivery Room Air Capillary Refill : Less Than 3 Seconds Height, Weight, BMI Height: 5'3.00" Weight: 174lbs. 0.0oz. 78.725026zn; 30.00 BMI Method:Stated General Appearance: Anxious HEENT: PERRL/EOMI, Normal ENT Inspection, Pharynx Normal Neck: Supple, Tender Lateral, Other (Limited range of motion) Respiratory: Chest Non Tender, Lungs Clear, Normal Breath Sounds Cardiovascular: Regular Rate, Rhythm Gastrointestinal: Non Tender, Soft Extremity: Non Tender, No Calf Tenderness Neurologic/Psychiatric: Alert, Oriented x3 Skin: Normal Color Focused Exam Sepsis Stage: Ruled Out Progress/Results/Core Measures Results/Orders Lab Results Laboratory Tests Test 02/08/21 10:34 02/08/21 10:35 Range/Units Glucometer 103 70-110 MG/DL White Blood Count 6.2 4.3-11.0 10^3/uL Red Blood Count 4.67 4.30-5.52 10^6/uL Hemoglobin 14.8 13.3-17.7 g/dL Hematocrit 43 40-54 % Mean Corpuscular Volume 91 80-99 fL Mean Corpuscular Hemoglobin 32 25-34 pg Mean Corpuscular Hemoglobin Concent 35 32-36 g/dL Red Cell Distribution Width 12.7 10.0-14.5 % Platelet Count 262 130-400 10^3/uL Mean Platelet Volume 8.9 L 9.0-12.2 fL Immature Granulocyte % (Auto) 0 % Neutrophils (%) (Auto) 59 42-75 % Lymphocytes (%) (Auto) 30 12-44 % Monocytes (%) (Auto) 8 0-12 % Eosinophils (%) (Auto) 2 0-10 % Basophils (%) (Auto) 1 0-10 % Neutrophils # (Auto) 3.7 1.8-7.8 X 10^3 Lymphocytes # (Auto) 1.9 1.0-4.0 X 10^3 Monocytes # (Auto) 0.5 0.0-1.0 X 10^3 Eosinophils # (Auto) 0.1 0.0-0.3 10^3/uL Basophils # (Auto) 0.1 0.0-0.1 10^3/uL Immature Granulocyte # (Auto) 0.0 0.0-0.1 10^3/uL Sodium Level 147 H 135-145 MMOL/L Potassium Level 4.9 3.6-5.0 MMOL/L Chloride Level 109 H 98-107 MMOL/L Carbon Dioxide Level 28 21-32 MMOL/L Anion Gap 10 5-14 MMOL/L Blood Urea Nitrogen 18 7-18 MG/DL Creatinine 1.26 0.60-1.30 MG/DL Estimat Glomerular Filtration Rate 58 BUN/Creatinine Ratio 14 Glucose Level 104 70-105 MG/DL Calcium Level 9.5 8.5-10.1 MG/DL Corrected Calcium 8.5-10.1 MG/DL Total Bilirubin 0.4 0.1-1.0 MG/DL Aspartate Amino Transf (AST/SGOT) 16 5-34 U/L Alanine Aminotransferase (ALT/SGPT) 15 0-55 U/L Alkaline Phosphatase 86 40-136 U/L Troponin I < 0.30 <0.30 NG/ML Total Protein 7.7 6.4-8.2 GM/DL Albumin 4.8 H 3.2-4.5 GM/DL My Orders Orders - CAROL MCGUIRE DO Cbc With Automated Diff (02/08/21 10:37) Comprehensive Metabolic Panel (02/08/21 10:37) Troponin I Fs (02/08/21 10:37) Ekg Tracing (02/08/21 10:37) Chest 1 View Ap/Pa Only (02/08/21 10:37) Clonidine Tablet (Catapres Tablet) (02/08/21 10:45) Lorazepam Tablet (Ativan Tablet) (02/08/21 10:41) Medications Given in ED Current Medications Medications Dose Ordered Sig/Didi Route Start Time Stop Time Status Last Admin Dose Admin Clonidine HCl 0.2 mg ONCE ONCE PO 02/08/21 10:45 10/26/21 10:46 DC 02/08/21 10:47 0.2 MG Vital Signs/I&O 02/08/21 02/08/21 10:27 11:46 Temp 36.3 36.3 Pulse 70 66 Resp 20 20 B/P (MAP) 151/106 (121) 150/74 Pulse Ox 98 97 O2 Delivery Room Air Room Air Blood Pressure Mean: 99 FSBG Bedside Testing Finger Stick Blood Glucose: 103 Blood Glucose Action Taken: NONE Departure Communication (Admissions) Chest x-ray: No cardiopulmonary disease. EKG: Sinus rhythm, no acute ST-T wave changes. Patient blood pressure improved with treatment of anxiety in blood pressure. 150s over 90s on recheck. No chest pain palpitation shortness of breath. No back pain abdominal pain to suggest aneurysm or dissection. Neck pain is chronic and reproducible. Will treat supportively with PCP follow-up. Return precautions reviewed. Patient verbalizes understanding and agreement discharge instructions prior to departure. Impression Primary Impression: Labile hypertension Additional Impressions: Chronic neck pain Anxiety state Disposition: HOME, SELF-CARE Condition: Stable Departure-Patient Inst. Decision time for Depature: 11:54 Referrals: ANUP FUNES MD (PCP/Family) Primary Care Physician Patient Instructions: Anxiety, Adult ED, Chronic Pain, High Blood Pressure ED Add. Discharge Instructions: Please continue home blood pressure medications and monitor blood pressure once daily at the same time. If your blood pressures greater than 180/95, you may take a additional dose of clonidine every 6 hours. Do not take clonidine within 4 hours of your blood pressure medication. Follow-up with your PCP in 1 week for reevaluation. Return to the ED if new or worsening symptoms. All discharge instructions reviewed with patient and/or family. Voiced understanding. Scripts Clonidine HCl (Clonidine HCl) 0.1 Mg Tablet 0.1 MG PO Q6H for Systolic Blood Pressure, #20 TAB Prov: CAROL MCGUIRE DO 02/08/21 CAROL MCGUIRE DO Feb 08, 2021 11:55
[2021-02-08] MEDS ORDERED: CLN.1T PO (11:57)
== END 2021-02-08 12:01 | disposition home or self-care (01) ==
LOC: EDUNIT# 10:27 → ER FS 10:29
DX: I10 Essential (primary) hypertension (principal); G89.29 Other chronic pain; M54.2 Cervicalgia; F41.9 Anxiety disorder, unspecified; M54.9 Dorsalgia, unspecified; Z79.899 Other long term (current) drug therapy; Z79.891 Long term (current) use of opiate analgesic
CPT/HCPCS: 36415; 71045; 80053; 82947; 84484; 85025; 93005

== ENCOUNTER 2021-02-09 12:53 | Emergency (ER) | payer MEDICAID ==
[~2021-02-09] VITALS: Ht 160 cm; Wt 75.0 kg
[~2021-02-09 12:53] MED LIST changes: +CLN.1T PO
[2021-02-09 13:07] VITALS: BP 140/96
--- NOTE | 2021-02-09 13:09 | ED General ---
General Chief Complaint: General Problems/Pain Stated Complaint: HIGH BP Source of Information: Patient Exam Limitations: No Limitations History of Present Illness Date Seen by Provider: Feb 09, 2021 Time Seen by Provider: 12:55 Initial Comments 65-year-old male with past medical history of hypertension coming in due to elevated blood pressure. He came in last night for the same, and received a call back by nursing this morning to check up on him which he noticed his blood pressure was still a little elevated so he came back in to be checked again. Recently had his medications increased and just wants to be prudent as he does not want to have any significant medical problems. Denies any chest pain, shortness of breath, nausea, vomiting, headache, weakness, numbness, vision changes, or any other acute complaints. He says he is completely normal and lacks any symptoms. He already took his medication this morning. Blood pressure he said was around 150/100. Allergies and Home Medications Allergies Coded Allergies: Pxiuluv-Zva-Coj Reductase Inhibitor (Verified Allergy, Unknown, 10/19/17) albuterol (Verified Allergy, Unknown, 10/19/17) fentanyl (Verified Allergy, Unknown, 03/14/18) Patient Home Medication List Home Medication List Reviewed: Yes Alprazolam (Alprazolam) 1 Mg Tablet, 1 MG PO TID PRN for ANXIETY, (Reported) Entered as Reported by: DENICE MOON on 10/19/17 1259 Cinnamon Bark (Cinnamon) 500 Mg Capsule, 500 MG PO BID, (Reported) Entered as Reported by: DENICE MOON on 10/19/17 1259 Clonidine HCl (Clonidine HCl) 0.1 Mg Tablet, 0.1 MG PO Q6H Prescribed by: CAROL MCGUIRE on 02/08/21 1157 Cyclobenzaprine HCl (Cyclobenzaprine HCl) 10 Mg Tablet, 10 MG PO TID PRN for SPASMS Prescribed by: VENKAT ZAYAS on 10/30/17 0705 Dexlansoprazole (Dexilant) 60 Mg Cap., 60 MG PO DAILY, (Reported) Entered as Reported by: DENICE MOON on 10/19/17 1437 Duloxetine HCl (Duloxetine HCl) 60 Mg Capsule., 60 MG PO DAILY, (Reported) Entered as Reported by: DENICE MOON on 10/19/17 1437 Gabapentin (Gabapentin) 300 Mg Capsule, 300 MG PO TID, (Reported) Entered as Reported by: DENICE MOON on 10/19/17 1437 Lisinopril (Lisinopril) 10 Mg Tablet, 10 MG PO DAILY, (Reported) Entered as Reported by: DENICE MOON on 10/19/17 1437 Losartan Potassium (Losartan Potassium) 50 Mg Tablet, (Reported) Entered as Reported by: EMILEE PRESTON on 03/14/18 1548 [place] 3 Polyunsat Fatty Acids (Fish Oil 1,000 mg Capsule) 1,000 Mg Cap, 1,000 MG PO DAILY, (Reported) Entered as Reported by: DENICE MOON on 10/19/17 1259 Oxycodone HCl/Acetaminophen (Oxycodone-Acetaminophen 5-325) 1 Each Tablet, 1-2 TAB PO Q4H PRN for PAIN-SEVERE 1ST LINE Prescribed by: VENKAT ZAYAS on 10/30/17 0705 Review of Systems Review of Systems Constitutional: no symptoms reported EENTM: no symptoms reported Respiratory: no symptoms reported Cardiovascular: no symptoms reported Gastrointestinal: no symptoms reported Genitourinary: no symptoms reported Musculoskeletal: no symptoms reported Skin: no symptoms reported Psychiatric/Neurological: No Symptoms Reported Hematologic/Lymphatic: No Symptoms Reported Immunological/Allergic: no symptoms reported All Other Systems Reviewed Negative Unless Noted: Yes Past Cckzdcf-Ygwvhh-Shlreh Hx Patient Social History Tobacco Use?: No Use of E-Cig and/or Vaping dev: No Substance use?: No Alcohol Use?: No Pt feels they are or have been: No Immunizations Up To Date Tetanus Booster (TDap): Unknown PED Vaccines UTD: Yes First/Initial COVID19 Vaccinat: 2020 Second COVID19 Vaccination Michael: 2020 COVID19 Vaccine [place]: DONT KNOW Seasonal Allergies Seasonal Allergies: Yes Past Medical History Surgery/Hospitalization HX: THROAT RECONSTRUCTION 4 YEARS AGO HTN HYPERLIPIDEMIA Surgeries: Yes (several ESWL's) Respiratory: No Cardiac: No Neurological: Yes Genitourinary: Yes Kidney Stones Gastrointestinal: No Musculoskeletal: Yes (stenosis) Arthritis, Chronic Back Pain Endocrine: No HEENT: No Cancer: No Psychosocial: Yes Anxiety Integumentary: Yes (a few bug bites on arms) Blood Disorders: No Adverse Reaction/Blood Tranf: No Family Medical History Arthritis 19 FATHER Cardiovascular disease 19 MOTHER Diabetes mellitus 19 MOTHER Hypertension 19 MOTHER Myocardial infarction 19 MOTHER Respiratory disorder 19 FATHER (lung ca) Physical Exam Vital Signs Capillary Refill : Less Than 3 Seconds Height, Weight, BMI Height: 5'3.00" Weight: 174lbs. 0.0oz. [id number]; 30.00 BMI Method:Stated General Appearance: No Apparent Distress, WD/WN HEENT: PERRL/EOMI, TMs Normal, Pharynx Normal Neck: Full Range of Motion, Normal Inspection, Non Tender, Supple Respiratory: Chest Non Tender, Lungs Clear, Normal Breath Sounds, No Accessory Muscle Use, No Respiratory Distress Cardiovascular: Regular Rate, Rhythm, No Edema, Normal Peripheral Pulses Gastrointestinal: Normal Bowel Sounds, Non Tender, Soft; No Distended, No Guarding Back: Normal Inspection, No CVA Tenderness, No Vertebral Tenderness Extremity: Normal Capillary Refill, Normal Inspection, Normal Range of Motion, Non Tender, No Calf Tenderness, No Pedal Edema Neurologic/Psychiatric: Alert, Oriented x3, No Motor/Sensory Deficits, Normal 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 Blood pressure is mildly elevated here, but he has no signs of end organ damage on exam. I took his blood pressure with his cuff from home as well and it is significantly higher than our cuff reading here. I then discussed how he can appropriately take his blood pressure at home and recommended he get a different cuff, as the 1 he has only goes on his wrist. He was then discharged home in stable condition with strict return precautions Departure Impression Primary Impression: Asymptomatic hypertension Disposition: 01 HOME, SELF-CARE Condition: Stable Departure-Patient Inst. Decision time for Depature: 13:07 Referrals: SELF,ANUP MORELAND (PCP/Family) Primary Care Physician Patient Instructions: High Blood Pressure in Adults Add. Discharge Instructions: You were seen in the emergency department for your elevated blood pressure. The cough that you brought is showing readings that are much higher than the cuff that we have here. I do recommend you buy a new one that goes around your bicep. Before you take your blood pressure at home, be sure you are sitting down and not moving for at least 15 minutes, have your arm rested on something, have your legs uncrossed with her feet resting on the ground. Only take your blood pressure 1-2 times per day and you can document this and take it to your primary care doctor. If you are having crushing chest pain, severe shortness of breath, weakness on one side of your body, numbness on one side of your body, new blindness, or the worst headache of her life then please come back to the emergency department WILLIAN TURNER MD Feb 09, 2021 13:09
== END 2021-02-09 13:10 | disposition home or self-care (01) ==
LOC: EDUNIT# 12:53 → ER FS 12:54
DX: I10 Essential (primary) hypertension (principal); F41.9 Anxiety disorder, unspecified; G89.29 Other chronic pain; M54.9 Dorsalgia, unspecified; Z79.899 Other long term (current) drug therapy; Z79.891 Long term (current) use of opiate analgesic
CPT/HCPCS: 99281

== ENCOUNTER → 2021-11-07 | Outpatient (CLI) | payer OTHER, MEDICAID ==
[~2021-11-07] MED LIST changes: +CYCL10TA25 PO; -CYCL10TA9 PO
[2021-11-07 10:34] LABS: CREATINE KINASE MB 0.9 NG/ML (<6.6)
== END ==
LOC: GIR 09:49
PROVIDERS: ATTEND Nurse Practitioner Family
DX: Z01.89 Encounter for other specified special examinations (principal)
CPT/HCPCS: 82553; 83874; 84443; 84484; 86141

== ENCOUNTER → 2022-11-22 | Outpatient (CLI) | payer MEDICAID ==
--- NOTE | 2022-11-22 15:18 | Diagnostic Imaging Report ---
PROCEDURE: MRI lumbar spine. TECHNIQUE: Multiplanar, multisequence MRI of the lumbar spine was performed without contrast. INDICATION: Chronic lower back pain. COMPARISON: None. FINDINGS: For the purposes of this exam, last well-formed disc space is noted at the L5-S1 level. Evaluation of static alignment shows slight grade 1 anterolisthesis at L5-S1. There is no evidence of jumped facets. Vertebral body heights are maintained. There is no acute fracture. Marrow signal is normal throughout. Intervertebral disc heights are fairly well maintained, although there is multilevel mild anterior posterior disc bulging. Visualized portions of the distal cord are unremarkable. Conus terminates at approximately the T12-L1 level. No abnormal intrathecal filling defect is seen. Prevertebral and paravertebral soft tissue structures are unremarkable. Axial images demonstrate the following: T12-L1: There is no large disc bulge or focal contusion. There is no significant spinal canal or neuroforaminal stenosis. L1-L2: There is slight broad-based posterior disc bulge. As a result, there is minimal flattening of the anterior thecal sac and minimal narrowing of bilateral neural foramen. L2-L3: There is slight broad-based posterior disc bulge. As a result, there is minimal flattening of the anterior thecal sac and minimal narrowing of bilateral neural foramen. L3-L4: There is slight broad-based posterior disc bulge, which results in mild flattening of the anterior thecal sac and mild narrowing of bilateral neural foramen. L4-L5: There is central posterior disc protrusion superimposed on broad-based posterior disc bulge. As a result, there is mild narrowing of the spinal canal and bilateral neural foramen. L5-S1: There is broad-based posterior disc bulge, eccentric to the left. As a result, there is minimal narrowing of bilateral neural foramen, left greater than right. Spinal canal is unremarkable. IMPRESSION: 1. 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 2. No acute fracture or dislocation. Dictated by: Dictated on workstation # [id number]
== END ==
LOC: RAD 12:34
PROVIDERS: ATTEND Family Medicine
DX: M47.816 Spondylosis without myelopathy or radiculopathy, lumbar region (principal); M48.061 Spinal stenosis, lumbar region without neurogenic claudication
CPT/HCPCS: 72148